=== PATIENT | male | born 1930 | race Caucasian/White ===

== ENCOUNTER → 2017-04-28 | Outpatient (CLI) | payer OTHER, MEDICARE ==
[~2017-04-28] MED LIST: ACETAMINOPHEN325 M1 PO; ALLEGRA60 MG; ALLERGY RELIEF180 MG PO; ASPIRIN EC81 M1 PO; BISOPROLOL FUMAR5 M1 PO; COUMADIN 5 MG TA5 M1 PO; DILTIAZEM 24HR180 MG; DILTIAZEM 24HR240 M1 PO; FERRO-TIME325 MG PO; HYDROCHLOROTHIA25 M1; JANTOVEN6 MG PO; POTASSIUM PO; VITAMIN E100 UNI2
--- NOTE | ~2017-04-28 | 2DMMODE ---
[facility] [address] [place] [address] 2 D/M-MODE ECHOCARDIOGRAM Name: MIRIAM MARTEL [id number] Admission: 04/28/17 Attend Phys: Huey Milan Discharge: Date of : 30 Date of Service: 04/28/17 1210 Report #: [id number] THIS REPORT FOR: //name// APPROVED REPORT Study performed: 04/28/2017 12:00:28 EXAM: Comprehensive 2D, Doppler, and color-flow Echocardiogram Patient Location: Out-Patient Room #: Echo lab Status: routine BSA: 2.38 HR: 69 bpm BP: 164/104 mmHg Other Information Study Quality: Adequate Indications Atrial Fibrillation Hypertension/HDD 2D Dimensions RVDd: 42.39 mm LVEF(%): 58.07 (>50%) IVSd: 10.84 (7-11mm) LVOT Diam: 21.69 (18-24mm) LVDd: 53.79 mm PWd: 11.11 (7-11mm) Ascending Ao: 36.44 (22-36mm) LVDs: 37.16 (25-40mm) Aortic Root: 37.70 mm Leroy's LVEF: 58.07 % Volumes Left Atrial Volume (Systole) Single Plane 4CH: 184.56 mL Single Plane 2CH: 192.83 mL LA ESV Index: 90.00 mL/m2 Aortic Valve AoV Peak Mark.: 1.73 m/s AO Peak Gr.: 11.92 mmHg LVOT Max P.28 mmHg LVOT Max V: 0.91 m/s JEFFREY Vmax: 1.94 cm2 Mitral Valve MV Decel. Time: 161.74 ms MV E Max Mark.: 1.25 m/s [facility] [place] [place] [address] 2 D/M-MODE ECHOCARDIOGRAM Name: MIRIAM MARTEL Room #: [facility]#: [id number] Admission: 04/28/17 Attend Phys: Huey Milan Discharge: Date of : 30 Date of Service: 04/28/17 1210 Report #: [id number] Pulmonary Valve PV Peak Mark.: 0.93 m/s PV Peak Gr.: 3.44 mmHg Tricuspid Valve TR Peak Mark.: 2.82 m/s TR Peak Gr.: 32.08 mmHg PA Pressure: 32.00 mmHg Left Ventricle The left ventricle is normal size. Regional wall motion is not well visualized but grossly normal. The left ventricular systolic function is normal. The left ventricular ejection fraction is within the normal range. LVEF is 50-55%. This study is not technically sufficient to allow evaluation of the LV diastolic function due to atrial fibrillation. Right Ventricle The right ventricle is normal size. The right ventricular systolic function is normal. Fat pad noted on the right ventricular free wall, normal variant. Atria Left atrium is dilated. Right atrium is dilated. Aortic Valve Aortic valve is calcified. Trace aortic regurgitation. There is no aortic valvular stenosis. Mitral Valve The mitral valve is normal in structure. Mild to moderate mitral regurgitation. No evidence of mitral valve stenosis. Tricuspid Valve The tricuspid valve is normal in structure. There is no tricuspid valve stenosis. There is mild to moderate tricuspid regurgitation. The right atrial pressure is estimated at 35-40mmHg. Pulmonic Valve The pulmonary valve is normal in structure. Trace pulmonic regurgitation. Great Vessels The aortic root is normal in size. IVC is not well visualized. [facility] [address] [place] [address] 2 D/M-MODE ECHOCARDIOGRAM Name: MIRIAM MARTEL [place] Room #: REG [facility]#: [id number] Admission: 04/28/17 Attend Phys: Huey Milan Discharge: Date of : 30 Date of Service: 04/28/17 1210 Report #: [id number] Pericardium There is no pericardial effusion. <Conclusion> The left ventricular systolic function is normal. Regional wall motion is not well visualized but grossly normal. LVEF is 50-55%. Both atria are severely dilated. Aortic valve is calcified. No aortic valvular stenosis, trace insufficiency. The mitral valve is normal in structure. Mild to moderate mitral regurgitation. There is mild to moderate tricuspid regurgitation. The right atrial pressure is estimated at 35-40mmHg. There is no pericardial effusion. <ELECTRONICALLY SIGNED> By: Mauro Red MD, FACC 04/28/17 1210 09 09 Mauro Red MD, FAC /INF
== END ==
LOC: CV 07:08
DX: I08.1 Rheumatic disorders of both mitral and tricuspid valves (principal); I48.91 Unspecified atrial fibrillation; I10 Essential (primary) hypertension; I70.0 Atherosclerosis of aorta; K21.9 Gastro-esophageal reflux disease without esophagitis

== ENCOUNTER → 2019-05-02 | Outpatient (CLI) | payer OTHER, MEDICARE | LOC: CV 12:12 → SJCVC 16:36 → CV 17:29 | DX: I48.21 Permanent atrial fibrillation (principal); I45.10 Unspecified right bundle-branch block; R94.31 Abnormal electrocardiogram [ECG] [EKG]; I10 Essential (primary) hypertension; E78.5 Hyperlipidemia, unspecified; K21.9 Gastro-esophageal reflux disease without esophagitis; M17.9 Osteoarthritis of knee, unspecified; Z85.46 Personal history of malignant neoplasm of prostate; Z79.01 Long term (current) use of anticoagulants; Z79.899 Other long term (current) drug therapy; Z87.891 Personal history of nicotine dependence ==